=== PATIENT | male | born 1965 | race Caucasian/White ===

== ENCOUNTER 2020-12-08 15:35 | Emergency (ER) | payer OTHER, SELFPAY ==
[2020-12-08 16:00] VITALS: BP 131/78; PULSE 65; RESP 14; TEMP 36.6; O2SAT 99; BMI 31.9
--- NOTE | 2020-12-08 16:04 | DI.RAD.S_ITS ---
PROCEDURE: XR WRIST RT MIN 3V INDICATIONS: pain/swelling in right wrist after fall TECHNIQUE: For views of the wrist were acquired. COMPARISON: None. FINDINGS: Bones: Oblique fracture through the distal radial metaphysis extends to the radiocarpal joint space Scaphoid view: Unremarkable Soft tissues: No suspicious soft tissue calcifications. IMPRESSION: Oblique nondisplaced intra-articular distal radial fracture Approved by: Santi Martinez M.D. on 12/08/2020 at 15:48
--- NOTE | 2020-12-08 19:00 | ED_ITS ---
HPI - General Adult General Chief complaint: Extremity Injury, Upper Stated complaint: Injured RT Wrist fell on it Time Seen by Provider: 12/08/20 18:40 Source: patient Mode of arrival: Ambulatory Limitations: no limitations History of Present Illness HPI narrative: Patient is a 55-year-old male who is here for evaluation of a right wrist injury. Patient states that he was standing on a short scaffolding when the board slipped and moved. He states that he fell landing/hitting his right wrist. He did not hit his head. There was no loss of consciousness. Reports no other injuries from the event. Has swelling and bruising around his right wrist. No interventions prior to arrival. Related Data Allergies Allergy/AdvReac Type Severity Reaction Status Date / Time PENICILLIN Allergy Unknown Uncoded 06/17/17 12:29 SULFA Allergy Unknown Uncoded 06/17/17 12:29 Review of Systems Musculoskeletal Musculoskeletal: Reports system reviewed and no additional complaints, except as documented and Reports as per HPI Integumentary/Breasts Skin/Breast: Reports system reviewed and no additional complaints, except as documented and Reports as per HPI Neurologic Neurologic: Reports system reviewed and no additional complaints, except as documented and Reports as per HPI Hematologic/Lymphatic On Anticoagulants: No Patient History Medical History Healthy adult Social History Smoking Status: Never smoker Smoking Status: Never smoker alcohol intake frequency: holidays/special occasions only Substance Use Type: does not use Exam Initial Vital Signs Initial Vital Signs: Vital Signs Temperature 98 F 12/08/20 16:00 Pulse Rate 65 12/08/20 16:00 Respiratory Rate 14 12/08/20 16:00 Blood Pressure 131/78 12/08/20 16:00 Pulse Oximetry 99 12/08/20 16:00 HENMT Head: normal to inspection and normocephalic Cardio Pulses: radial pulses present on the right Skin Other: Patient with mild bruising and swelling along the distal radius of the right wrist. Neuro General: patient alert, patient awake, patient oriented x3 and moves all extremities Extrem Other: Patient unable to flex and extend the right wrist. Unable to pronate and supinate secondary to pain. His right elbow is unremarkable. His right hand is unremarkable. No tenderness in the snuffbox on the right hand. His right shoulder is unremarkable. Psych Appearance: grossly normal and well kempt Procedures Orthopedic Splinting/Casting Injury #1: Side: right Upper Extremity Injury Location: wrist Upper Extremity Immobilizer: thumb spica Post splinting neuro exam: no change Post splinting vascular exam: no change Placed by: Nursing Course Orders Ordered: ED Orders 12/08/20 16:04 XR wrist RT min 3V Stat Vital Signs Vital signs: Vital Signs - 8 hr 12/08/20 16:00 12/08/20 19:32 Temperature 98 F Pulse Rate 65 60 Respiratory Rate 14 16 Blood Pressure 131/78 122/81 Pulse Oximetry 99 98 Medical Decision Making Imaging Data Extremity x-ray #1: Radiologist's Impression: [address] [address] XRay Report Signed Patient: Grayson Anna MR#: [id number] : 1965 Acct:[id number] Age/Sex: 55 / M Date of Service: 12/08/20 Loc: ED Accession Number: [id number] ?? Procedure: XR wrist RT min 3V Ordering Provider: Shavon Rivera D.O. PROCEDURE:? XR WRIST RT MIN 3V ? INDICATIONS: pain/swelling in right wrist after fall ? TECHNIQUE:? For views of the wrist were acquired.? ? COMPARISON:? None. ? FINDINGS:? ? Bones:? Oblique fracture through the distal radial metaphysis extends to the radiocarpal joint space ? Scaphoid view:? Unremarkable ? Soft tissues:? No suspicious soft tissue calcifications.? ? IMPRESSION:? Oblique nondisplaced intra-articular distal radial fracture ? ? ? Approved by: Santi Martinez M.D. on 12/08/2020 at 15:48? [facility] Narrative Medical decision making narrative: Patient is neurovascularly intact. He does have a distal radius fracture noted on the x-rays. No other injuries reported from the patient nor found on the exam from the event. He was placed in a splint. [facility] [place] [facility]. He was given a copy of the x-rays on a CD and instructed to contact them on Thursday for a follow-up. He was given care instructions and return precautions. He expressed understanding and agreement. Discharge Plan Departure Patient Disposition: Home Clinical Impression: Distal radius fracture, right Instructions: DI for Wrist Fracture, How to Take Care of Your Splint Activity Restrictions/Additional Instructions: The splint that was placed today needs to be treated like cast. Keep it on and keep it clean and keep it dry. On Thursday contact your primary doctor and also the Orthopedic Department on the [facility] for a follow-up. If for some reason the orthopedic department there cannot follow you up you can contact the orthopedic provider at the number provided below for follow-up. Return to the emergency department for any new or worsening symptoms Referrals: Adilene Chappell MD [Physician] -
[2020-12-08 19:32] VITALS: BP 122/81; PULSE 60; RESP 16; O2SAT 98
== END 2020-12-08 19:45 | disposition home or self-care (01) ==
PROVIDERS: Emergency Provider Emergency Medicine
DX: S52.501A Unspecified fracture of the lower end of right radius, initial encounter for closed fracture (principal); W12.XXXA Fall on and from scaffolding, initial encounter
CPT/HCPCS: 29125; 73110; 99283

== ENCOUNTER → 2023-07-23 14:36 | Outpatient (CLI) | payer OTHER, SELFPAY ==
--- NOTE | 2023-07-23 14:38 | DI.MRI.S_ITS ---
PROCEDURE: MR PELIS WO/W CON INDICATIONS: Elevated prostate specific antigen [PSA] TECHNIQUE: Coronal HASTE, axial T1 FSE with fat saturation, 3-plane nonbreath-hold T2 FSE. After the administration of contrast, dynamic axial, delayed axial and coronal VIBE or 2-D FLASH with fat saturation through the pelvis. Diffusion weighted imaging and ADC was performed. COMPARISON: None. FINDINGS: Image quality: Diffusion weighted and dynamic contrast enhanced images are diagnostic. Prostate: 3.5 x 2.7 x 3.4 cm. Estimated volume is 17 cc. No recent PSA is available to calculate PSA density. Right mid gland to basal T2 hypointense lesion measuring 1.3 x 1.1 x 1.3 cm (7/, 5/). DWI score 4. T2 score 4. DCE positive. PI-RADS 4. There is no definite/measurable extracapsular disease, however, the extent of capsular contact raises concern for micro capsular involvement. Transitional zone heterogenous nodules are present, either well encapsulated or mostly encapsulated, compatible with PI-RADS 1 or 2 likely BPH nodules. Mildly T2 hypointense heterogenous striated appearance of the peripheral zone is commonly seen with current or prior prostatitis, PI-RADS 2. These findings can obscure small cancers. Seminal vesicles appear clear. The left seminal vesicle appears more fibrotic. Genitourinary system: Unremarkable Bowel and peritoneum: No evidence of small bowel obstruction. There are colonic diverticula. No ascites. Nodes and vessels: No aneurysmal vessel identified. No pathologic lymph nodes by size criteria. Micro metastases within lymph nodes can be better detected with prostate PET if clinically indicated. Soft tissues: Small fat containing inguinal hernias Bones: Unremarkable. No suspicious lesions. IMPRESSION: Suspicious PI-RADS 4 lesion in the right mid and basal peripheral zone. Extent of capsular contact raises concern for micro capsular involvement. No measurable extracapsular disease or seminal vesicle involvement. Other findings above. Dictated by: Trevin Ontiveros M.D. on 07/23/2023 at 16:54 Approved by: Trevin Ontiveros M.D. on 07/23/2023 at 16:58
== END ==
PROVIDERS: Referring Provider Physician Assistant Medical; Visit Provider Physician Assistant Medical
DX: N42.9 Disorder of prostate, unspecified (principal); R97.20 Elevated prostate specific antigen [PSA]; K40.90 Unilateral inguinal hernia, without obstruction or gangrene, not specified as recurrent; K57.90 Diverticulosis of intestine, part unspecified, without perforation or abscess without bleeding
CPT/HCPCS: 72197; A9579